=== PATIENT | male | born 1995 | race Caucasian/White ===

== ENCOUNTER 2021-12-29 09:20 | Emergency (ER) | payer OTHER ==
[2021-12-29] MEDS ORDERED: AMOXICILLIN875 MG PO (11:02)
[2021-12-29] MEDS ORDERED: MEDROL 4MG DOSEP4 MG PO (11:02)
[2021-12-29 11:12] LABS: INFLUENZA A NAA NEGATIVE (NEGATIVE)
[2021-12-29 11:14] LABS: CORONAVIRUS 2019 SARS-COV-2 POSITIVE (NEGATIVE)
== END 2021-12-29 11:38 | disposition home or self-care (01) ==
LOC: EDBD 09:20 → FER 09:20
PROVIDERS: Emergency Medicine
DX: J02.9 Acute pharyngitis, unspecified (principal); Z20.822 Contact with and (suspected) exposure to COVID-19; Z28.310 Unvaccinated for COVID-19
CPT/HCPCS: 99283; U0002